=== PATIENT | male | born 1985 | race African-American/Black ===

== ENCOUNTER 2017-02-07 12:35 | Emergency (ER) | payer OTHER ==
[~2017-02-07] VITALS: Ht 182.9 cm; Wt 95.3 kg
[2017-02-07] MEDS ORDERED: IBUPROFEN 800 MG TABLET. PO ONE (13:00)
[2017-02-07] MEDS ORDERED: oxyCODONE/APAP 5/325 1 TAB TABLET PO ONE (13:00)
[2017-02-07] MEDS ORDERED: HYDROmorphone 2 MG/ML VIAL IV ONE (13:15)
[2017-02-07] MEDS ORDERED: ONDANSETRON PF 4 MG/2 ML VIAL. IV ONE (13:15)
[2017-02-07] MEDS ORDERED: PROPOFOL 20 ML IV SCH (14:00)
[2017-02-07] MEDS ORDERED: PROPOFOL 20 ML IV ONE (14:21)
--- NOTE | 2017-02-07 14:48 | RAD ---
Indication injury, pain. AP and lateral views of the right ankle were obtained. There is tibiotalar dislocation. A definite fracture is not seen but post reduction imaging is advised. IMPRESSION: Tibiotalar dislocation
[2017-02-07] MEDS ORDERED: ONDA4TAB10 PO (15:06)
[2017-02-07] MEDS ORDERED: OXYC-323 PO (15:06)
--- NOTE | 2017-02-07 15:06 | PHYS DOC ---
Past Medical History Past Medical History: No Pertinent History Past Surgical History: No Surgical History Alcohol Use: None Drug Use: None Adult General Chief Complaint Chief Complaint: ANKLE PROBLEM HPI HPI Patient is a 31 year old male presenting to the emergency department for evaluation of right ankle injury. Patient was playing basketball when he had what he thinks is an inversion injury. Patient has deformity laterally to the ankle but he denies any proximal tib-fib or bony foot tenderness to palpation. No weakness numbness or tingling. Review of Systems Review of Systems Constitutional: Denies fever or chills [] Cardiovascular: No additional information not addressed in HPI [] Musculoskeletal: Denies back pain. Right ankle joint pain. Integument: Denies rash or skin lesions [] Neurologic: Denies headache, focal weakness or sensory changes [] Current Medications Current Medications Current Medications Medications (Trade) Dose Ordered Sig/Sandro Start Time Stop Time Status Last Admin Dose Admin Hydromorphone HCl (Dilaudid) 1 mg 1X ONCE 02/07/17 13:15 02/07/17 13:16 DC 02/07/17 13:15 1 MG Ibuprofen (Motrin) 800 mg 1X ONCE 02/07/17 13:00 02/07/17 13:09 DC Ondansetron HCl (Zofran) 4 mg 1X ONCE 02/07/17 13:15 02/07/17 13:16 DC 02/07/17 13:15 4 MG Oxycodone/ Acetaminophen (Percocet 5/325) 2 tab 1X ONCE 02/07/17 13:00 02/07/17 13:09 DC Propofol 20 ml @ As Directed STK-MED ONCE 02/07/17 14:21 02/07/17 14:22 DC Allergies Allergies Allergies Coded Allergies Type Severity Reaction Last Updated Verified No Known Drug Allergies 02/07/17 No Physical Exam Physical Exam Constitutional: Well developed, well nourished, no acute distress, non-toxic appearance. [] Cardiovascular:Heart rate regular rhythm, no murmur [] Lungs & Thorax: Bilateral breath sounds clear to auscultation [] Abdomen: Bowel sounds normal, soft, no tenderness, no masses, no pulsatile masses. [] Skin: Warm, dry, no erythema, no rash. [] Extremities: Right ankle deformity with tenting of his skin however no open wounds or abrasions. Distally he is neurovascularly intact. Neurologic: Alert and oriented X 3, normal motor function, normal sensory function, no focal deficits noted. [] Current Patient Data Vital Signs Vital Signs Date Time Temp Pulse Resp B/P (MAP) Pulse Ox O2 Delivery O2 Flow Rate FiO2 02/07/17 13:00 98.4 94 20 147/79 (101) 97 Room Air 98.4 EKG EKG [] Radiology/Procedures Radiology/Procedures Right ankle film shows anterior talo talus dislocation. No obvious fractures. Impressions: Indication: [Right ankle dislocation] Consent: I have discussed with the patient and/or the patient telemarketing representative the indication, alternatives, and the possible risks and /or complications of the planned procedure and the anesthesia methods. The patient and/or patient telemarketing representative appear to understand and agree to proceed. Pre-Sedation Documentation and Exam: [Normal cardiovascular exam] Airway Assessment: normal. Prior History of Anesthesia Complications: none. ASA Classification: [1] Sedation/ Anesthesia Plan: [Propofol] Medications Used: see nursing notes. Monitoring and Safety: The patient was placed on a hvac r tech and vital signs, pulse oximetry and level of consciousness were continuously evaluated throughout the procedure. The patient was closely monitored until recovery from the medications was complete and the patient had returned to baseline status. Respiratory therapy was on standby at all times during the procedure. (The following sections must be completed) Post-Sedation Vital Signs: [Normal] Post-Sedation Exam: [Normal] Complications: none. Indication: Joint dislocation Consent: Consent was obtained. Procedure: The pre-reduction exam showed distal perfusion and neurologic function to be normal.. The patient was placed in the appropriate position. Anesthesia/pain control propofol sedation as above. Reduction of the right ankle ] was performed by traction]. Post reduction films were obtained and revealed satisfactory reduction. A post-reduction exam revealed distal perfusion and neurologic function to be normal. The affected area was immobilized with stirrup and posterior splint. The patient tolerated the procedure well. Neurovascularly intact status post splint Complications: none. Course & Med Decision Making Course & Med Decision Making I spoke to Dr. Scanlon about the. Post exam and she agreed with letting him go home on crutches and following with him later this week. Patient aware and agreeable with plan. Dragon Disclaimer Dragon Disclaimer This electronic medical record was generated, in whole or in part, using a voice recognition dictation system. Departure Departure Impression: Primary Impression: Ankle dislocation Disposition: HOME, SELF-CARE Condition: GOOD Referrals: RONEL SCANLON MD Patient Instructions: Ankle Dislocation Additional Instructions: Take 400 mg of ibuprofen every 6 hours for pain. Stay off of her leg elevated and rest it. The Percocet is for breakthrough pain and he will very likely need to take it. Follow with the orthopedic doctor as soon as possible. Scripts Ondansetron (ZOFRAN ODT) 4 Mg Tab.rapdis 4 MG PO BID Y for NAUSEA/VOMITING, #10 TAB Prov: FRANCE MONIQUE DO 02/07/17 Oxycodone/Apap 5-325 (PERCOCET 5-325 MG TABLET) 1 Each Tablet 1 TAB PO PRN Q6HRS Y for PAIN, #30 TAB 0 Refills Prov: FRANCE MONIQUE DO 02/07/17 Problem Qualifiers Primary Impression: Ankle dislocation Encounter type: initial encounter Laterality: right Qualified Codes: S93.04XA - Dislocation of right ankle joint, initial encounter FRANCE MONIQUE DO Feb 07, 2017 15:06
--- NOTE | 2017-02-07 15:41 | RAD ---
Indication post reduction. AP oblique and lateral views of the right ankle were obtained and are compared to an examination approximately 80 minutes earlier. There has been interval reduction. A splint or cast has been applied which slightly obscures bony detail. No definite fracture is seen
[2017-02-07 16:09] VITALS: BP 147/84
--- NOTE | 2017-02-07 16:13 | RAD ---
Indication pain. Dislocation. Evaluate for potential occult fracture. AP and lateral views of the right tibia and fibula were obtained. Cast or splint is noted at the ankle. No fracture is seen.
[2017-02-08] MEDS ORDERED: PROPOFOL 20 ML IV ONE (14:00)
== END 2017-02-07 16:18 | disposition home or self-care (01) ==
LOC: ER 12:35
DX: S93.04XA Dislocation of right ankle joint, initial encounter (principal); X58.XXXA Exposure to other specified factors, initial encounter; Y93.67 Activity, basketball; Y92.89 Other specified places as the place of occurrence of the external cause; Y99.8 Other external cause status
CPT/HCPCS: 73590; 73610; 96374; 96375; 99285; J1170; J2405